=== PATIENT | male | born 1980 | race African-American/Black ===

== ENCOUNTER 2019-01-21 07:16 | Emergency (ER) | payer OTHER ==
[~2019-01-21] VITALS: Ht 170.2 cm; Wt 70.5 kg
[2019-01-21] MEDS ORDERED: MULT1CAP32 PO (07:26)
[2019-01-21 08:24] VITALS: BP 140/81
[2019-01-21] MEDS ORDERED: OxyCODONE HCL/ACETAMINOPHEN 5-325 MG TABLET PO ONE (09:15)
== END 2019-01-21 09:30 | disposition home or self-care (01) ==
LOC: EMS 07:16
DX: M25.551 Pain in right hip (principal); M25.561 Pain in right knee; G89.29 Other chronic pain; F12.90 Cannabis use, unspecified, uncomplicated; Z91.040 Latex allergy status

== ENCOUNTER 2019-02-14 04:25 | Emergency (ER) | payer OTHER ==
[~2019-02-14] VITALS: Ht 172.7 cm; Wt 68.2 kg
[~2019-02-14 04:25] MED LIST: MULT1CAP32 PO
[2019-02-14] MEDS ORDERED: ACETAMINOPHEN 325 MG TABLET PO ONE (05:15)
[2019-02-14] MEDS ORDERED: LIDOCAINE 5% TRANSDERMAL PATCH TD ONE (05:15)
[2019-02-14 05:27] VITALS: BP 115/60
== END 2019-02-14 05:54 | disposition home or self-care (01) ==
LOC: EMS 04:26
DX: G89.29 Other chronic pain (principal); M25.551 Pain in right hip; F12.90 Cannabis use, unspecified, uncomplicated; Z76.0 Encounter for issue of repeat prescription; Z88.6 Allergy status to analgesic agent; Z91.040 Latex allergy status